=== PATIENT | female | born 1990 | race Hispanic/Latino ===

== ENCOUNTER 2017-07-19 10:32 | Observation (INO) | payer BC ==
[~2017-07-19] VITALS: Ht 149.9 cm; Wt 67.6 kg
[2017-07-19] MEDS ORDERED: DIATRIZOATE MEGL/DIATRIZOA SOD 120 ML BTL PO ONE (12:07)
[2017-07-19] MEDS ORDERED: DIATRIZOATE MEGL/DIATRIZOA SOD 30 ML BTL PO ONE (12:08)
[2017-07-19 12:18] LABS: BASOPHILS % 0.3 % (0.0-1.0); EOSINOPHILS # (AUTO) 0.1 (0.0-0.4); EOSINOPHILS % 0.8 % (0.0-6.0); HEMATOCRIT 39.5 % (34.2-44.1); HEMOGLOBIN 13.7 g/dL (12.0-16.0); LYMPHOCYTES # (AUTO) 2.6 (1.0-3.2); LYMPHOCYTES % 28.5 % (18.0-39.1); MEAN CORPUSCULAR HEMOGLOBIN 30.6 pg (28-32); MEAN CORPUSCULAR HGB CONC 34.7 g/dL (31-35); MEAN CORPUSCULAR VOLUME 88.2 fL (81-99); MONOCYTES # (AUTO) 0.6 (0.2-0.8); NEUTROPHILS # (AUTO) 5.7 (2.1-6.9); NEUTROPHILS % 63.1 % (38.7-80.0); PLATELET COUNT 336 x10e3/uL (140-360); RED BLOOD COUNT 4.48 x10e6/uL (3.6-5.1); RED CELL DISTRIBUTION WIDTH 12.9 % (11.7-14.4)
[2017-07-19 12:21] LABS: BILIRUBIN,URINE NEGATIVE (NEGATIVE); KETONES,URINE NEGATIVE (NEGATIVE); LEUKOCYTE ESTERASE ,URINE NEGATIVE (NEGATIVE); NITRITE,URINE NEGATIVE (NEGATIVE); PROTEIN,URINE DIPSTICK NEGATIVE (NEGATIVE); URINE UROBILINOGEN 0.2 mg/dL (0.2 - 1)
[2017-07-19 12:33] LABS: PREGNANCY TEST, URINE NEGATIVE (NEGATIVE)
[2017-07-19 12:44] LABS: ALANINE AMINOTRANSFERASE 17 IU/L (0-55); ALBUMIN 3.8 g/dL (3.5-5.0); ALBUMIN/GLOBULIN RATIO 0.9 (0.8-2.0); ALKALINE PHOSPHATASE 80 IU/L (40-150); ANION GAP 12.5 mmol/L (8-16); BLOOD UREA NITROGEN 12 mg/dL (7-26); BUN/CREATININE RATIO 17 (6-25); CALCIUM 9.7 mg/dL (8.4-10.2); CARBON DIOXIDE 25 mmol/L (22-29); CHLORIDE 106 mmol/L (98-107); CREATININE, SERUM 0.71 mg/dL (0.57-1.11); EST GLOMERULAR FILTRATION RATE > 60 ML/MIN (60-); GLUCOSE 104 mg/dL (74-118); POTASSIUM 3.5 mmol/L (3.5-5.1); SODIUM 140 mmol/L (136-145)
--- NOTE | 2017-07-19 13:31 | Diagnostic Imaging Report ---
PROCEDURE: CT ABDOMEN AND PELVIS WITH CONTRAST TECHNIQUE: The abdomen and pelvis were scanned utilizing a multidetector helical scanner from the diaphragm to the lesser trochanter after the IV administration of 100 cc of Isovue 370 and the oral administration of Gastrografin. Coronal and sagittal multiplanar reformations were obtained. Total DLP: 292.28 mGy-cm COMPARISON: None. INDICATIONS: Abdominal pain. Evaluate for or appendicitis. FINDINGS: LOWER THORAX: Normal. HEPATOBILIARY: No focal hepatic lesions. No biliary ductal dilatation. Gallbladder is distended measuring 3.8 x 7.8 cm with thickened wall versus pericholecystic fluid. SPLEEN: No splenomegaly. PANCREAS: No focal masses or ductal dilatation. ADRENALS: No adrenal nodules. KIDNEYS/URETERS: No hydronephrosis, stones, or solid mass lesions. PELVIC ORGANS/BLADDER: Uterus, bilateral ovaries, and bladder are unremarkable. PERITONEUM / RETROPERITONEUM: No free air or fluid. LYMPH NODES: No lymphadenopathy. VESSELS: Unremarkable. GI TRACT: No distention or wall thickening. Normal appendix. BONES AND SOFT TISSUES: Small fat-containing umbilical hernia.. IMPRESSION: 1. Mildly distended gallbladder with thickened gallbladder grayson versus pericholecystic fluid, suspicious for acute cholecystitis. No definite stones visualized on CT. 2. Normal appendix. Dictated by: Satnam Tompkins M.D. on 07/19/2017 at 13:40 Electronically approved by: Satnam Tompkins M.D. on 07/19/2017 at 13:40
[2017-07-19] MEDS ORDERED: PIPER-TAZ 3.375 GM 50 ML IV STA (13:47)
[2017-07-19] MEDS ORDERED: ONDANSETRON HCL INJ 2 MG/ML VIAL IV STA (13:47)
[2017-07-19] MEDS ORDERED: MORPHINE SULFATE 4 MG/ML SYR IV STA (13:47)
[2017-07-19] MEDS ORDERED: SODIUM CHLORIDE 0.9% 1000ML 1,000 ML IV STA (13:47)
[2017-07-19] MEDS ORDERED: POTASSIUM CHLORIDE 20 MEQ TAB CR PO STA (13:48)
--- NOTE | 2017-07-19 14:49 | Diagnostic Imaging Report ---
PROCEDURE:US GALLBLADDER COMPARISON:CT abdomen and pelvis 07/19/2017. INDICATIONS:R/O STONES FINDINGS: LIVER: Size:12.5 cm in the right nidclavicular line, normal Appearance:Mildly increased echogenicity, smooth contour Mass:No focal masses GALLBLADDER: Stones/Sludge:Minimal small echogenic stone stuck to the gallbladder wall. Appearance:Wall thickening measuring 0.4 cm. Distended measuring 12 x 4.2 x 4.7 cm. Sonographic Gasca's Sign:Negative BILE DUCTS: Intrahepatic Ducts:No dilation Extrahepatic Ducts:Common bile duct measures 0.3 cm, no dilatation. PANCREAS: Obscured by bowel gas. RIGHT KIDNEY: Size:12.0 x 4.2 x 4.7 cm in length Echogenicity:Normal Collecting System:No hydronephrosis Stone:None Cyst/Mass:None VESSELS: Aorta:Visualized portions are normal. Inferior Vena Cava:Visualized portions are normal. Main Portal Vein:0.5 cm, normal size with hepatopedal flow. FREE FLUID: No ascites or pleural effusions. CONCLUSION: Gallbladder hydrops with thickened grayson. Minimal small stones adherent to the grayson. Negative sonographic Gasca sign. This is equivocal for acute cholecystitis. Dictated by: Satnam Tompkins M.D. on 07/19/2017 at 14:58 Electronically approved by: Satnam Tompkins M.D. on 07/19/2017 at 14:58
[2017-07-19 15:11] LABS: CLARITY,URINE CLEAR (CLEAR); COLOR,URINE YELLOW (YELLOW)
[2017-07-19 15:12] LABS: RBC,URINE 0-5 /HPF (0-5); WBC,URINE (MAN) 0-5 /HPF (0-5)
[2017-07-19] MEDS ORDERED: SODIUM CHLORIDE 0.9% 50ML 50 ML ONE (15:41)
[2017-07-19] MEDS ORDERED: IOPAMIDOL 370 MG/ML 200 ML INFUS..BTL INJ ONE (15:41)
[2017-07-19] MEDS ORDERED: SODIUM CHLORIDE 0.9% 1000ML 1,000 ML ONE (17:09)
[2017-07-19] MEDS ORDERED: POTASSIUM CHLORIDE 20 MEQ TAB CR PO ONE (17:11)
[2017-07-19 17:27] VITALS: BP 125/73
[2017-07-19 17:38] VITALS: BP 125/73
[2017-07-19 17:40] VITALS: BP 125/73
[2017-07-19] MEDS ORDERED: DIPHENHYDRAMINE HCL INJ 50 MG/ML VIAL IV PRN (18:15)
[2017-07-19] MEDS: D5.45%NS/KCL 20MEQ 1,000 ML IV SCH (18:39)
[2017-07-19] MEDS ORDERED: LEVOFLOXACIN 500MG/D5W 100ML 100 ML IV SCH (18:45)
[2017-07-19] MEDS ORDERED: ACETAMINOPHEN 325 MG TAB PO PRN (18:45)
--- NOTE | 2017-07-19 19:30 | History and Physical ---
CHIEF COMPLAINT: Abdominal pain. HISTORY OF PRESENT ILLNESS: A 27-year-old female patient who had an episode of right lower quadrant abdominal pain. She was seen at [facility] emergency room. The patient had an ultrasound that was treated as urinary tract infection with Bactrim, and the patient went for followup to primary care physician, . The patient was having right lower quadrant tenderness so she was sent to the hospital for reevaluation for appendicitis. The patient had a CT of the abdomen and pelvis in the ER. Her pain was more localized to the right lower quadrant. She also had some discomfort in the epigastric area. Her temperature was 99.9. Her bowel movements are normal. No diarrhea. No blood in the stool. No vomiting. The patient's CT showed no biliary dilatation. Gallbladder is distended measuring 3.8 x 7.8 cm with thickened wall versus pericholecystic fluid. GI tract with no distention or wall thickening. The patient also had gallbladder ultrasound that showed gallbladder hydrops with thickened grayson, minimal small stone adherent to the grayson. Negative sonographic ____ sign. for acute cholecystitis. LABORATORY DATA: CBC: White blood cell count 9.02, hemoglobin 13.7. PAST MEDICAL HISTORY: Nothing significant. ALLERGIES: PENICILLIN. MEDICATIONS: NONE. PERSONAL HISTORY: No smoking or alcohol. REVIEW OF SYSTEMS: All other systems reviewed and no complaints reported. The patient denies hemorrhagia. Her menstrual cycles are normal. PHYSICAL EXAMINATION VITAL SIGNS: Blood pressure 135/89, pulse 106. HEENT: Normal. NECK: No JVD. LUNGS: Bilaterally normal. ABDOMEN: Soft. Bowel sounds normal. The patient has mild tenderness in the right lower quadrant and also today in the epigastric area. Minimal tenderness with no guarding, no rigidity, no rebound. EXTREMITIES: Lower extremities with no edema. CHEMIST INORGANIC: Normal. ASSESSMENT: Abdominal pain with right lower quadrant tenderness and epigastric tenderness with unspecified and possible early appendicitis with mild cholecystitis. PLAN: Will keep on Levaquin and Flagyl. The patient already developed an allergic reaction with Zosyn, so will include PENICILLIN as allergy and keep on IV fluids. Surgical consultation and do HIDA scan. Job#: [id number]
[2017-07-19 20:00] VITALS: BP 99/55
[2017-07-19] MEDS: LEVOFLOXACIN 500MG/D5W 100ML 100 ML IV SCH (20:59)
[2017-07-19] MEDS: METRONIDAZOLE 500MG/NS 100ML 100 ML IV SCH (21:55)
[2017-07-19] MEDS ORDERED: PIPER-TAZ 3.375 GM/50 ML BAG IV SCH (22:00)
[2017-07-20] VITALS (7 sets, daily range): BP systolic 93–108; BP diastolic 50–64
[2017-07-20] MEDS ORDERED: PIPER-TAZ 3.375 GM 50 ML IV SCH (01:00)
[2017-07-20] MEDS: D5.45%NS/KCL 20MEQ 1,000 ML IV SCH (05:30)
[2017-07-20] MEDS: METRONIDAZOLE 500MG/NS 100ML 100 ML IV SCH ×3 (05:41→22:00)
[2017-07-20 06:15] LABS: BASOPHILS % 0.3 % (0.0-1.0); EOSINOPHILS # (AUTO) 0.1 (0.0-0.4); EOSINOPHILS % 0.9 % (0.0-6.0); HEMATOCRIT 37.3 % (34.2-44.1); LYMPHOCYTES # (AUTO) 3.1 (1.0-3.2); LYMPHOCYTES % 31.1 % (18.0-39.1); MEAN CORPUSCULAR HEMOGLOBIN 30.7 pg (28-32); MEAN CORPUSCULAR HGB CONC 34.9 g/dL (31-35); MEAN CORPUSCULAR VOLUME 88.2 fL (81-99); MONOCYTES # (AUTO) 0.7 (0.2-0.8); MONOCYTES % 6.8 % (4.4-11.3); NEUTROPHILS % 60.5 % (38.7-80.0); PLATELET COUNT 321 x10e3/uL (140-360); RED BLOOD COUNT 4.23 x10e6/uL (3.6-5.1); RED CELL DISTRIBUTION WIDTH 13.1 % (11.7-14.4)
[2017-07-20 06:52] LABS: ALANINE AMINOTRANSFERASE 13 IU/L (0-55); ALBUMIN 3.4 g/dL (3.5-5.0); ALBUMIN/GLOBULIN RATIO 0.9 (0.8-2.0); ALKALINE PHOSPHATASE 68 IU/L (40-150); AMYLASE 35 U/L (25-125); ANION GAP 8.6 mmol/L (8-16); BLOOD UREA NITROGEN 9 mg/dL (7-26); BUN/CREATININE RATIO 13 (6-25); CALCIUM 8.9 mg/dL (8.4-10.2); CARBON DIOXIDE 23 mmol/L (22-29); CHLORIDE 110 mmol/L (98-107); CREATININE, SERUM 0.67 mg/dL (0.57-1.11); EST GLOMERULAR FILTRATION RATE > 60 ML/MIN (60-); GLUCOSE 91 mg/dL (74-118); LIPASE 13 U/L (8-78); POTASSIUM 3.6 mmol/L (3.5-5.1); SODIUM 138 mmol/L (136-145)
--- NOTE | 2017-07-20 10:42 | Consultation ---
DATE OF CONSULTATION: July 20, 2017 CHIEF COMPLAINT: Abdominal pain. HISTORY OF PRESENT ILLNESS: Patient is a 27-year-old female with recurrent epigastric pain radiating to the back with nausea, but no vomiting. The patient has been seen multiple times at the urgent care setting, and recently admitted through the physician's office. PAST MEDICAL HISTORY: Positive for right nose syndrome. She has no previous history of surgery or hospitalizations. ALLERGIES: THE PATIENT IS ALLERGIC TO PENICILLIN AND TAZOBACTAM. SOCIAL HABITS: The patient denies smoking or drinking. REVIEW OF SYSTEMS: No cough, chest pain, shortness of breath, or diarrhea. PHYSICAL EXAMINATION VITAL SIGNS: Stable. She is afebrile. GENERAL: Patient is awake, alert and in no apparent discomfort. HEENT: Sclerae nonicteric. NECK: Supple. LUNGS: Clear. HEART: Regular rate and rhythm. No murmur. ABDOMEN: Soft with mild guarding and tenderness in the epigastric area. No rebound. White cell count is 9 and hemoglobin 13. Liver function tests within normal admits. Lipase is 13. Ultrasound of gallbladder showed gallstones. CT scan showed distention of gallbladder with thickened wall with normal appendix. ASSESSMENT: Cholecystitis and cholelithiasis. PLAN: Laparoscopic cholecystectomy. Attendant risks discussed. Job#: [id number] [facility]
[2017-07-20] MEDS ORDERED: BUPIVACAINE 0.25% 30ML SDV INJ ONE (13:45)
[2017-07-20] MEDS: MORPHINE SULFATE 2 MG/ML SYR IV PRN (14:14)
[2017-07-20] MEDS: ONDANSETRON HCL INJ 2 MG/ML VIAL IV PRN (14:14)
[2017-07-20] MEDS ORDERED: MORPHINE SULFATE 5 MG/ML VIAL ONE (17:42)
[2017-07-20] MEDS ORDERED: ONDANSETRON HCL INJ 2 MG/ML VIAL ONE (18:00)
[2017-07-20] MEDS ORDERED: LIDOCAINE HCL 2% LOCAL INJ 5 ML SDV VIAL INJ ONE (18:00)
[2017-07-20] MEDS ORDERED: PROPOFOL IV EMULSION 10 MG/ML 20 ML VIAL ONE (18:00)
[2017-07-20] MEDS ORDERED: ROCURONIUM BROMIDE 10 MG/ML 5ML VIAL ONE (18:00)
[2017-07-20] MEDS ORDERED: DEXAMETHASONE SOD PHOS INJ 4 MG/ML VIAL ONE (18:00)
[2017-07-20] MEDS ORDERED: SEVOFLURANE INHAL SOLN 250 ML PEN BTL ONE (18:00)
[2017-07-20] MEDS ORDERED: GLYCOPYRROLATE INJ 1MG/ 5 ML SYR ONE (18:00)
[2017-07-20] MEDS ORDERED: ACETAMINOPHEN 1000 MG/100 ML IV ONE (18:00)
[2017-07-20] MEDS ORDERED: NEOSTIGMINE 5 MG/5ML SYR ONE (18:00)
[2017-07-20] MEDS ORDERED: MIDAZOLAM HCL 2 MG/2 ML VIAL ONE (18:33)
[2017-07-20] MEDS ORDERED: FENTANYL CITRATE/PF 100MCG/2 ML INJ ONE (18:33)
--- NOTE | 2017-07-20 18:44 | Diagnostic Imaging Report ---
HIDA Scan with Morphine Augmentation Clinical information: 27 F with abdominal pain; acute cholecystitis per CT/US Report: Following the administration of 6.6 of Tc-99m mebrofenin, dynamic images of the abdomen in the anterior projection were obtained through 60 minutes. Then, morphine sulfate 2 mg was administered via slow IV push and additional images were obtained through 30 minutes. Perfusion to the liver is normal. Extraction of tracer by the liver parenchyma is normal. Tracer appears promptly within the biliary tract. Tracer is seen within the small bowel by 15 minutes. The gallbladder does not fill during the initial 60 minutes of dynamic imaging. Following administration of morphine, the gallbladder also does not fill. Impression: Abnormal hepatobiliary scan 1. Absence of filling of the gallbladder, even following administration of morphine, is compatible with the diagnosis of acute cystic duct obstruction/acute cholecystitis. Signed by: Dr. Nazia Ag M.D. on 07/20/2017 6:40 PM
[2017-07-20] MEDS: LEVOFLOXACIN 500MG/D5W 100ML 100 ML IV SCH (21:28)
[2017-07-21] VITALS (7 sets, daily range): BP systolic 101–109; BP diastolic 55–60
[2017-07-21] MEDS: D5.45%NS/KCL 20MEQ 1,000 ML IV SCH ×2 (01:56→08:19)
--- NOTE | 2017-07-21 01:58 | Operative Report ---
DATE OF PROCEDURE: July 20, 2017 PREOPERATIVE DIAGNOSIS: Acute cholecystitis. POSTOPERATIVE DIAGNOSIS: Acute cholecystitis. OPERATIVE PROCEDURE: Laparoscopic cholecystectomy. ANESTHESIA: General. INDICATIONS: Patient is a 27-year-old female with a several day history of abdominal pain and nausea. Ultrasound showed gallstone with thickened gallbladder wall. Patient consented for laparoscopic cholecystectomy with all attendant risks discussed. FINDINGS: Acute cholecystitis with multiple gallstones. DESCRIPTION OF PROCEDURE: The patient was brought to the OR and intubated. The abdomen was prepped with alcohol and draped in a sterile fashion. An infraumbilical incision is made, and a 10-mm port inserted. Insufflation begun. Under direct vision, other port site placed in the right upper quadrant and epigastric area. Gallbladder was distended and inflamed. Omental adhesion was dissected off the fundus. We decompressed the gallbladder with a needle, and the fundus is then retracted in a cephalad direction. With blunt and sharp dissection at the neck of the gallbladder, we isolated the cystic artery, triply clipped and divided. Significant inflammation required meticulous blunt and sharp dissection to delineate the cystic duct, and noted the junction with the bile duct before triply clipping the cystic duct and divided between clips. Gallbladder then detached from the liver using cautery, and placed in an Endopouch and retrieved out the peritoneal cavity. Operative field was then irrigated. Hemostasis achieved. A 19-Hebrew Jacob drain placed in Man pouch, and taken out down to the right upper quadrant port site. All ports were removed under direct vision. Fascia was closed with interrupted 0 Vicryl. Skin closed with subcuticular stitch. Patient was extubated and transported to the recovery room. Estimated blood loss 20 mL. Job#: [id number] [place]
[2017-07-21] MEDS: MORPHINE SULFATE 2 MG/ML SYR IV PRN ×4 (03:05→16:14)
[2017-07-21] MEDS: METRONIDAZOLE 500MG/NS 100ML 100 ML IV SCH ×2 (05:47→14:26)
[2017-07-21] MEDS: ONDANSETRON HCL INJ 2 MG/ML VIAL IV PRN ×2 (11:00→15:52)
--- NOTE | 2017-07-21 11:39 | Discharge Summary ---
A 27-year-old female patient admitted with abdominal pain. Patient workup was positive for acute cholecystitis. Patient was consulted by Dr. Vincent. Underwent laparoscopic cholecystectomy. Patient is recovering. She will be discharged home today. DISCHARGE DIAGNOSES 1. Acute abdominal pain. 2. Acute cholecystitis, status post laparoscopic cholecystectomy. JENSEN GNOZALEZ MD Job#: [id number] [place]
== END 2017-07-21 17:04 | disposition home or self-care (01) ==
LOC: ER 10:32 → ERHOLD 17:09 → IMCU 17:11
PROVIDERS: ADMIT Internal Medicine; ATTEND Internal Medicine
DX: K80.00 Calculus of gallbladder with acute cholecystitis without obstruction (principal); Z88.0 Allergy status to penicillin
CPT/HCPCS: 36415; 74177; 76705; 78227; 80053; 81001; 81025; 82150; 83690; 85025; 87086; 88304; 99284; A9537; G0378; J1100; J1200; J1956; J2001; J2250; J2270; J2405; J2543; J7030; Q9963; Q9967

== ENCOUNTER → 2018-01-03 | Outpatient (CLI) | payer BC ==
--- NOTE | 2018-01-03 17:08 | Diagnostic Imaging Report ---
PROCEDURE:TRANSVAGINAL ULTRASOUND COMPARISON:None. INDICATIONS:Right Lower Quadrant Pain, positive home test. HCG 7.69 TECHNIQUE: Grayscale transverse and sagittal transabdominal and transvaginal images were obtained of the pelvis. Transvaginal imaging was medically necessary to better evaluate the endometrium.. FINDINGS: 27-year-old female patient, G1, P0 with stated LMP 11/09/2017 UTERUS: 7.9 x 3.3 x 4.6 cm., Anteverted position. Normal echogenicity. No focal lesions. ENDOMETRIUM: 0.8 cm, normal. Homogeneous echogenicity without focal thickening. No intrauterine gestational sac is identified. RIGHT OVARY: 3.1 x 2.3 x 2.3 cm. No focal lesions. LEFT OVARY: 3.7 x 2.4 x 3.2 cm. 2.0 x 1.9 x 1.6 cm rounded mostly solid appearing structure with hypoechoic center and prominent peripheral vascularity. 1.2 x 0.9 x 1.2 cm cystic, mostly anechoic structure with a small amount of debris. There is small amount free fluid within the pelvis. No adnexal masses. CONCLUSION: 1. No intrauterine gestational sac is identified. 2. 2.0 cm rounded mostly solid appearing structure with prominent peripheral vascularity in the left ovary. Although an ectopic is less likely given the very low hCG levels, it is not entirely excluded. Alternatively, this may represent a corpus luteum cyst. Recommend followup beta hCG. 3. Likely small hemorrhagic cyst in the left ovary. 4. . Findings discussed with INNA Taylor, January 03, 2018 at 1705 hrs. Feliciano Em M.D. Dictated by: Feliciano Em M.D. on 01/03/2018 at 17:12 Electronically approved by: Feliciano Em M.D. on 01/03/2018 at 17:12
== END ==
LOC: US 13:43
PROVIDERS: ATTEND Family Medicine
DX: Z32.01 Encounter for pregnancy test, result positive (principal); R10.31 Right lower quadrant pain
CPT/HCPCS: 36415; 76830; 84702